=== PATIENT | male | born 1980 | race African-American/Black ===

== ENCOUNTER 2016-12-01 09:52 | Emergency (ER) | payer SELFPAY ==
[~2016-12-01] VITALS: Ht 180.3 cm; Wt 62.0 kg
[~2016-12-01 09:52] MED LIST: ACET500C5 PO; BACTDS PO; CEPH-443 PO; CLOT30CR24 TOP; [UNRECOGNIZED DRUG - OTHER]
[2016-12-01 09:56] VITALS: Ht 180.3 cm; Wt 62.0 kg
[2016-12-01] MEDS ORDERED: BACI28.34 TOP (10:13)
[2016-12-01] MEDS ORDERED: ACET500C5 PO (10:13)
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
== END 2016-12-01 10:20 | disposition home or self-care (01) ==
LOC: FTE 09:52
DX: T23.102A Burn of first degree of left hand, unspecified site, initial encounter (principal); X10.0XXA Contact with hot drinks, initial encounter; Y92.9 Unspecified place or not applicable; Z87.891 Personal history of nicotine dependence
CPT/HCPCS: 99283

== ENCOUNTER 2018-04-05 00:16 | Emergency (ER) | END 2018-04-05 02:32 | disposition home or self-care (01) ==

== ENCOUNTER 2018-04-08 20:35 | Emergency (ER) | END 2018-04-09 00:07 | disposition home or self-care (01) ==

== ENCOUNTER 2018-08-26 08:30 | Emergency (ER) | payer SELFPAY ==
[~2018-08-26] VITALS: Ht 175.3 cm; Wt 65.7 kg
[~2018-08-26 08:30] MED LIST changes: +BACI28.34 TOP; +HYDR-843 PO; +MUPI22OI2 TOP; +NAPR-985 PO; +SULF1TAB31 PO; +TRAM50TA2 PO; +TRIA15OI9 TOP
[2018-08-26 08:42] VITALS: BP 138/70; PULSE 56; RESP 20; Ht 175.3 cm; Wt 65.7 kg
[2018-08-26] MEDS ORDERED: CEFTRIAXONE 250 MG INJ IM ONE (09:30)
[2018-08-26] MEDS ORDERED: LIDOCAINE 1% (MPF) 5 ML VIAL INJ ONE (09:30)
[2018-08-26] MEDS ORDERED: AZITHROMYCIN 250 MG TAB PO ONE (09:30)
--- NOTE | 2018-08-26 09:53 | ERD ---
ER Documentation Chief Complaint Chief Complaint Complains of genital problems x 2 days HPI 37-year-old male presenting with genital pain and dysuria. He states he has some stinging in the tip of his penis is been going on for the last 2 days. He has no known STDs. No new sexual partners. He noted some discharge this morning from his penis. Patient denies any testicular pain. Denies any sores. Denies abdominal pain. Denies fevers. Denies medical problems. NKDA. Surgical history denies. Social history smokes half pack a day and uses marijuana daily. ROS All systems reviewed and are negative except as per history of present illness. Medications Home Meds Active Scripts Naproxen* (Naprosyn*) 500 Mg Tablet, 500 MG PO BID PRN for PAIN AND/OR INFLAMMATION, #30 TAB Prov:ERROL,ANTON 04/08/18 Sulfamethoxazole/Trimethoprim* (Bactrim Ds* Tablet) 1 Each Tablet, 1 TAB PO BID for 7 Days, #14 TAB Prov:ERROL,ANTON 04/08/18 Cephalexin* (Keflex*) 500 Mg Capsule, 500 MG PO QID for 10 Days, #40 CAP Prov:ERROL,ANTON 04/08/18 Mupirocin* (Bactroban*) 2% -22 Gram Oint...g., 1 APPLIC TOP BID for 7 Days, EA Prov:ERROL,ANTON 04/08/18 Hydroxyzine Hcl* (Hydroxyzine Hcl*) 25 Mg Tablet, 25 MG PO Q8H PRN for ITCHING, #30 TAB Prov:TREVON LUCIANO NP 04/05/18 Triamcinolone Acetonide (Triamcinolone Acetonide) 0.5% - 15 Gm Oint..gm., 1 APPLIC TOP BID, #1 TUB Prov:TREVON LUCIANO NP 04/05/18 Tramadol HCl (Tramadol HCl) 50 Mg Tablet, 50 MG PO Q6 PRN for SEVERE PAIN LEVEL 7-10, #7 TAB Prov:TREVON LUCIANO NP 04/05/18 Acetaminophen* (Tylophen*) 500 Mg Capsule, 1 CAP PO Q6H PRN for PAIN AND OR ELEVATED TEMP, #20 CAP Prov:TREVON LUCIANO NP 04/05/18 Bacitracin* (Bacitracin Zinc Oint*) 28.35 Gm Oint, 1 APPLIC TOP BID, #1 TUB APPLI TO Prov:BONITA BEASLEY PA-C 12/01/16 Acetaminophen* (Tylophen*) 500 Mg Capsule, 1 CAP PO Q6H PRN for PAIN AND OR ELEVATED TEMP, #20 CAP Prov:BONITA BEASLEY PA-C 12/01/16 Clotrimazole* (Clotrimazole* AF) 1% - 30 Gm Cream.gm., 1 APPLIC TOP BID for 7 Days, TUB Prov:ANUPEANDRES SALEH 01/07/15 Acetaminophen* (Tylophen*) 500 Mg Capsule, 1 CAP PO Q6H PRN for PAIN AND OR ELEVATED TEMP, #20 CAP Prov:ANUPEORAANDRES 01/07/15 Sulfamethoxazole-Trimethoprim* (Bactrim* DS) 800-160 Mg Tab, 1 TAB PO BID for 7 Days, TAB Prov:ANDRES US 01/07/15 Cephalexin* (Keflex*) 500 Mg Capsule, 500 MG PO QID for 7 Days, CAP Prov:SADEORAANDRES 01/07/15 Reported Medications [advil,tylenol] No Conflict Check 01/31/13 Allergies Allergies: Coded Allergies: No Known Allergy (Unverified , 04/08/18) PMhx/Soc Medical and Surgical Hx: pt denies Medical Hx History of Surgery: Yes (Right leg SX) Anesthesia Reaction: No Hx Neurological Disorder: No Hx Respiratory Disorders: No Hx Cardiac Disorders: No Hx Psychiatric Problems: No Hx Miscellaneous Medical Probl: No Hx Alcohol Use: Yes (OCCASSIONAL) Hx Substance Use: Yes (marijuana) Hx Tobacco Use: Yes (1/2PACK/DAY) Smoking Status: Current every day smoker FmHx Family History: No diabetes, No coronary disease, No other Physical Exam Vitals Vital Signs Date Temp Pulse Resp B/P (MAP) Pulse Ox O2 O2 Flow FiO2 Time Delivery Rate 08/26/18 97.8 56 20 138/70 98 08:42 (92) Physical Exam GENERAL: The patient is well-appearing, well-nourished, in no acute distress HEENT: Atraumatic. Conjunctivae are pink. Pupils equal, round, and reactive to light. There is no scleral icterus. Tympanic membranes clear bilaterally. Oropharynx clear. NECK: C-spine is soft and supple. There is no meningismus. There is no cer vical lymphadenopathy. CHEST: Clear to auscultation bilaterally. There are no rales, wheezes or rhonchi. HEART: Regular rate and rhythm. No murmurs, clicks, rubs or gallops. No S3 or S4. ABDOMEN:Soft, nontender and nondistended. Good bowel sounds. No rebound or guarding. No gross peritonitis. : Discharge noted from the head of the penis. Uncircumcised Results 24 hrs Laboratory Tests Test 08/26/18 09:38 Bedside Urine pH (LAB) 7.0 Bedside Urine Protein (LAB) 1+ Bedside Urine Glucose (UA) Negative Bedside Urine Ketones (LAB) Negative Bedside Urine Blood Trace-intact Bedside Urine Nitrite (LAB) Negative Bedside Urine Leukocyte Esterase (L Trace Current Medications Medications Dose Sig/Cristopher Start Time Status Last (Trade) Ordered Route PRN Stop Time Admin Dose Reason Admin Ceftriaxone 250 mg ONCE ONCE 08/26/18 DC 08/26/18 Sodium IM 09:30 09:32 (Rocephin) 08/26/18 09:31 Lidocaine 5 ml ONCE ONCE 08/26/18 DC 08/26/18 (Xylocaine INJ 09:30 09:32 1% (Mpf)) 08/26/18 09:31 1,000 mg ONCE ONCE 08/26/18 DC 08/26/18 Azithromycin PO 09:30 09:32 (Zithromax) 08/26/18 09:31 Procedures/MDM ER course: Urine sent. Gonorrhea chlamydia screening sent. Urine culture sent. I have injection of Rocephin. All azithromycin given. MDM: 37-year-old male presenting with dysuria and penile discharge. Patient is treated for probable STD. Patient's urine screening tests were sent. Patient was told symptoms change or worsen to return the ER. I have low suspicion for urinary tract infection and will not discharge home with continue antibiotics. If urine culture comes back positive antibiotics will need to be called in for patient. All questions answered at discharge Departure Diagnosis: Primary Impression: Dysuria Condition: Stable Patient Instructions: Dysuria Additional Instructions: FOLLOW UP WITH YOUR PRIMARY CARE PHYSICIAN TOMORROW.Return to this facility if you are not improving as expected. TELLY REBOLLEDO PA-C Aug 26, 2018 09:53
== END 2018-08-26 10:46 | disposition home or self-care (01) ==
LOC: FTE 08:30
DX: R30.0 Dysuria (principal); F17.210 Nicotine dependence, cigarettes, uncomplicated
CPT/HCPCS: 81003; 87086; 87591; J0696; 96372